=== PATIENT | male | born 1960 | race Caucasian/White ===

== ENCOUNTER → 2019-08-18 | Outpatient (CLI) | payer OTHER | END | disposition home or self-care (01) | LOC: RAH 12:17 | PROVIDERS: ATTEND Internal Medicine | DX: Z13.6 Encounter for screening for cardiovascular disorders (principal) | CPT/HCPCS: 75571 ==

== ENCOUNTER → 2024-09-24 | Outpatient (CLI) | payer OTHER ==
--- NOTE | 2024-09-24 14:20 | HMCIMG ---
CT CORONARY CALCIFICATION SCORING: Anatomic images were reviewed. The calcium score is being generated and reported separately. This report is for the visualized anatomy only. Visualized portions of the lungs are clear. Hilar and mediastinal structures appear normal. Osseous structures are unremarkable. Impression: 1. Negative noncardiac anatomic findings. 2. The calcium score is 0 consistent with absence of calcified plaque. CT was performed with one or more following dose reduction techniques: automated exposure control, adjustment of the mA and kv according to patient's size, or use of a iterative reconstruction technique.
== END | disposition home or self-care (01) ==
LOC: RAH 12:26
PROVIDERS: ATTEND Internal Medicine
DX: Z13.6 Encounter for screening for cardiovascular disorders (principal)
CPT/HCPCS: 75571

== ENCOUNTER → 2025-09-27 | Outpatient (CLI) | payer BC ==
[~2025-09-27] MED LIST: IOHEXOL-350 75 ML VIAL IV ONE
--- NOTE | 2025-09-28 01:12 | HMCIMG ---
STUDY CT abdomen and pelvis with and without IV contrast. HISTORY Vomiting without nausea. Change in bowel habit. TECHNIQUE Axial computed tomography images of the abdomen and pelvis were obtained before and after intravenous contrast administration. COMPARISON None provided. FINDINGS Lung bases The lung bases appear clear. No pleural effusions are seen. Liver Unremarkable. Gallbladder and bile ducts The gallbladder appears within normal limits. No radioopaque gallstones are seen. No biliary ductal dilatation is evident. Pancreas Unremarkable. Spleen Unremarkable. Adrenal glands Unremarkable. Kidneys, ureters, and bladder The kidneys appear within normal limits without hydronephrosis or hydroureter. No urinary calculi are seen. The urinary bladder demonstrates circumferential wall thickening measuring up to 4.1 mm, compatible with cystitis in the appropriate clinical setting. Stomach and bowel Unremarkable appearance of the stomach and small bowel. No evidence of bowel obstruction. No CT evidence of enteritis or colitis. Uncomplicated colonic diverticulosis is noted without surrounding inflammatory change. Appendix No evidence of acute appendicitis on CT examination. Peritoneum No free fluid. No free air. Lymph nodes No lymphadenopathy is evident. Reproductive The prostate is enlarged, measuring approximately 42 cc in volume. No discrete prostatic mass is identified. Vasculature No evidence of abdominal aortic aneurysm. Bones No aggressive appearing osseous lesion. No acute osseous pathology is evident. IMPRESSION * Cystitis, evidenced by circumferential bladder wall thickening measuring up to 4.1 mm; correlate with urinalysis. * Prostatomegaly, with estimated prostatic volume of approximately 42 cc. * Uncomplicated colonic diverticulosis without evidence of acute diverticulitis. * No acute intra-abdominal or pelvic abnormality otherwise identified. /[place]
== END | disposition home or self-care (01) ==
LOC: RAH 09:30
PROVIDERS: ATTEND Internal Medicine
DX: N40.0 Benign prostatic hyperplasia without lower urinary tract symptoms (principal); N30.90 Cystitis, unspecified without hematuria; K57.30 Diverticulosis of large intestine without perforation or abscess without bleeding; R11.11 Vomiting without nausea; K59.00 Constipation, unspecified
CPT/HCPCS: 74178; Q9967